=== PATIENT | male | born 1970 | race Two or more races ===

== ENCOUNTER 2017-04-03 19:45 | Observation (INO) | payer MEDICAID ==
[~2017-04-03] VITALS: Ht 165.1 cm; Wt 72.6 kg
[2017-04-03 20:35] LABS: Basophils # (auto) 0 uL; Basophils % (auto) 0.3 % (0.0-2.0); Eosinophils # (auto) 0.1 uL; Eosinophils % (auto) 1.5 % (0.0-7.0); Hematocrit 42.7 % (41.0-53.0); Hemoglobin 14.8 g/dL (13.5-17.5); Lymphocytes # (auto) 1.4 uL; Lymphocytes % (auto) 29.1 % (10.0-50.0); Mean Corpuscular Hgb Conc. 34.8 g/dL (32.0-36.0); Mean Corpuscular Volume 92.2 fL (80.0-100.0); Monocytes # (auto) 0.4 uL; Monocytes % (auto) 9.1 % (0.0-12.0); Neutrophils # (auto) 2.8 uL; Nucleated Red Blood Cells % 0.1 %; Platelet Count (auto) 184 10^3/uL (140-450); Red Blood Cells 4.63 10^6/uL (4.5-5.90); Red Cell Distribution Width 13.3 % (11.8-14.3); White Blood Cell 4.7 10^3/uL (4.4-10.8)
[2017-04-03 20:40] LABS: INR 0.9 (0.9-1.15); Partial Thromboplastin Time 28.1 sec (22.64-33.71); Prothrombin Time 9.8 sec (9.37-12.3)
[2017-04-03 20:52] LABS: Alanine Aminotransferase 39 U/L (16-61); Albumin 3.9 g/dL (3.4-5.0); Alkaline Phosphatase 126 U/L (45-117); Anion Gap 7 (5-15); Aspartate Aminotransferase 18 U/L (15-37); BUN/Creatinine Ratio 17.3; Bilirubin, Total 0.3 mg/dL (0.2-1.0); Blood Urea Nitrogen 14 mg/dL (7-18); Calcium 8.7 mg/dL (8.5-10.1); Carbon Dioxide 28 mmol/L (21-32); Chloride 99 mmol/L (98-107); GFR African American 132 mL/min; GFR Non-African American 109 mL/min; Glucose 324 mg/dL (74-106); Potassium 4.1 mmol/L (3.5-5.1); Sodium 134 mmol/L (136-145)
[2017-04-04] MEDS ORDERED: InsuLIN REG 1unit/0.01ml Soln (100units/ml) IV ONE (00:15)
[2017-04-04 02:05] VITALS: BP 150/90
== END 2017-04-04 02:12 | disposition home or self-care (01) | DRG 203 ==
LOC: ER 19:50 → OVERFLOW 20:45 → ER 04-04 02:12
PROVIDERS: ADMIT Emergency Medicine; ATTEND Emergency Medicine
DX: R07.2 Precordial pain (principal); E10.65 Type 1 diabetes mellitus with hyperglycemia; K29.70 Gastritis, unspecified, without bleeding; F17.200 Nicotine dependence, unspecified, uncomplicated
CPT/HCPCS: 36415; 71010; 80053; 82962; 83036; 83735; 83880; 84443; 84484; 85025; 85379; 85610; 85730; 93005; 96374; 99285; G0378; J1815

== ENCOUNTER 2019-10-11 15:51 | Inpatient (IN) | payer MEDICAID ==
[~2019-10-11] VITALS: Ht 165.1 cm; Wt 65.3 kg
[2019-10-11] MEDS ORDERED: SODIUM CHLORIDE 0.9% 1,000 ML IVB ONE (16:45)
[2019-10-11] MEDS ORDERED: CLINDAMYCIN 600MG IV 50 ML IV ONE (16:45)
[2019-10-11 17:08] LABS: Basophils # (auto) 0 10 ^3/uL (0-0.2); Basophils % (auto) 0.5 % (0.0-2.0); Eosinophils # (auto) 0 10 ^3/uL (0-0.8); Eosinophils % (auto) 0.4 % (0.0-7.0); Hematocrit 40.9 % (41.0-53.0); Hemoglobin 13.6 g/dL (13.5-17.5); Lymphocytes % (auto) 10.4 % (10.0-50.0); Mean Corpuscular Hemoglobin 29.8 pg (28.0-32.0); Mean Corpuscular Hgb Conc. 33.4 g/dL (32.0-36.0); Mean Corpuscular Volume 89.4 fL (80.0-100.0); Monocytes # (auto) 0.8 10 ^3/uL (0-1.3); Monocytes % (auto) 7.6 % (0.0-12.0); Neutrophils % (auto) 81.1 % (37.0-80.0); Nucleated Red Blood Cells % 0.1 %; Platelet Count (auto) 310 10^3/uL (140-450); Red Blood Cells 4.58 10^6/uL (4.5-5.90); Red Cell Distribution Width 13.1 % (11.8-14.3); White Blood Cell 9.9 10^3/uL (4.4-10.8)
[2019-10-11 17:22] LABS: Albumin 2.1 g/dL (3.4-5.0); Calcium 8.3 mg/dL (8.5-10.1); Potassium 4.5 mmol/L (3.5-5.1)
[2019-10-11 17:24] LABS: BUN/Creatinine Ratio 18.8; Bilirubin, Total 0.4 mg/dL (0.2-1.0); Total Protein 7.2 g/dL (6.4-8.2)
[2019-10-11 17:41] LABS: INR 0.96 (0.9-1.15)
[2019-10-11] MEDS ORDERED: ACETAMINOPHEN 500 MG TAB PO ONE (19:00)
[2019-10-11] MEDS ORDERED: SODIUM CHLORIDE 0.9% 1,000 ML IV SCH (19:24)
[2019-10-11] MEDS ORDERED: VANCOMYCIN PER PHARMACY 0 MG IV SCH (19:30)
[2019-10-11] MEDS ORDERED: HYDROcodone-ACET 5/325MG TAB PO PRN (19:30)
[2019-10-11] MEDS ORDERED: DOCUSATE SOD 100 MG CAP PO PRN (19:30)
[2019-10-11] MEDS ORDERED: NITROGLYCERIN 0.4 MG SL TAB SL PRN (19:30)
[2019-10-11] MEDS ORDERED: LORazepam 0.5 MG TAB PO PRN (19:30)
[2019-10-11] MEDS ORDERED: METOCLOPRAMIDE HCL 5MG/ml INJ 2ml VIAL IV PRN (19:30)
[2019-10-11] MEDS ORDERED: FUROSEMIDE 20 MG/2 ML VIAL IV ONE (19:30)
[2019-10-11] MEDS ORDERED: MORPHINE SULF INJ 2 MG/ML SYRINGE 1ML IV PRN ×2 (19:30)
[2019-10-11] MEDS ORDERED: ACETAMINOPHEN 500 MG TAB PO PRN (19:30)
[2019-10-11] MEDS ORDERED: ALUM & MAG HYDROX-SIMETH LIQ(MAALOX) 30 ML PO PRN (19:30)
[2019-10-11] MEDS ORDERED: hydrALAZINE HCL 20 MG/ML VL IV ONE (19:45)
[2019-10-11] MEDS ORDERED: DEXTROSE (50%) 50ML SYRG IV PRN (19:45)
[2019-10-11 21:30] VITALS: BP 171/91
--- NOTE | 2019-10-11 21:30 | NUR ---
Telemetry admit from ER ALISON DENNIS admitted to Telemetry unit after SBAR received. Patient oriented to GITA PALOMINO RN primary RN, unit, room, bed, and unit policies regarding patient care and visiting hours. Patient now on continuous telemetry monitoring, tele box #6 and telemetry reading on arrival to unit is NSR. Upon arrival, patient A&O x4, no s/s of distress or SOB noted at this time. Patient denies pain at this time. Patient weighed by bedscale and encouraged to call if they need something. Bed locked and left in the lowest position and call light left within reach. All questions and concerns addressed, patient verbalized understanding.
[2019-10-11] MEDS ORDERED: ALBUTEROL SULF HFA 90MCG INH 200DOSE IN SCH (22:00)
[2019-10-11] MEDS: VANCOMYCIN 1GM/250ML 250 ML IV SCH (22:27)
[2019-10-11] MEDS: ACCU-CHEK COMFORT CURVE STRIP VI SCH (22:28)
[2019-10-11] MEDS: INSULIN LANTUS (GLARGINE) 1 /0.01ml (100units/ml) SC SCH (22:28)
[2019-10-11] MEDS: InsuLIN REG 1unit/0.01ml Soln (100units/ml) SC SCH (22:29)
--- NOTE | 2019-10-11 22:45 | NUR ---
ELEVATED BLOOD PRESSURE PATIENT'S BP NOTED IN THE 170s/90s, HOSPITALIST PAGED AND NEW ORDER GIVEN, VERIFIED, AND READ BACK. WILL CONTINUE TO MONITOR.
[2019-10-11 23:46] VITALS: BP 134/82
--- NOTE | 2019-10-11 23:46 | NUR ---
BP REASSESSMENT CURRENT BP: 134/82 THE PATIENT HAS NO COMPLAINTS OF PAIN, NO S/S OF SOB OR DISTRESS NOTED, PATIENT STATES HE "FEELS FINE" ALL OTHER VITALS ARE STABLE AT THIS TIME.
[2019-10-12] MEDS: PIPERACILLIN-TAZOB 3.375GM 100 ML IV SCH ×4 (00:30→17:48)
[2019-10-12] MEDS: hydrALAZINE HCL 25 MG TAB PO PRN (01:13)
[2019-10-12 02:00] VITALS: BP 168/88
--- NOTE | 2019-10-12 04:50 | NUR ---
ELEVATED BP BLOOD PRESSURE READING IN 160s/90s. PATIENT REMAINS ASYMPTOMATIC. HOSPITALIST PAGED, NEW ORDER GIVEN, READ BACK, AND VERIFIED. WILL REASSESS AND CONTINUE TO MONITOR
[2019-10-12] MEDS ORDERED: cloNIDine HCL 0.1 MG TAB PO ONE (05:00)
--- NOTE | 2019-10-12 05:52 | NUR ---
MORNING LABS COLLECTED AND SENT TO THE LAB.
--- NOTE | 2019-10-12 05:53 | NUR ---
PICTURE OF WOUND TO LEFT FOOT TAKEN.
[2019-10-12] MEDS ORDERED: FUROSEMIDE 20 MG/2 ML VIAL IV SCH (06:00)
[2019-10-12 06:03] LABS: Basophils # (auto) 0 10 ^3/uL (0-0.2); Basophils % (auto) 0.1 % (0.0-2.0); Eosinophils # (auto) 0 10 ^3/uL (0-0.8); Eosinophils % (auto) 0.3 % (0.0-7.0); Hematocrit 37.8 % (41.0-53.0); Hemoglobin 12.6 g/dL (13.5-17.5); Lymphocytes # (auto) 1.1 10 ^3/uL (0.4-5.4); Mean Corpuscular Hemoglobin 29.9 pg (28.0-32.0); Mean Corpuscular Hgb Conc. 33.4 g/dL (32.0-36.0); Mean Corpuscular Volume 89.7 fL (80.0-100.0); Monocytes # (auto) 0.9 10 ^3/uL (0-1.3); Monocytes % (auto) 9.1 % (0.0-12.0); Neutrophils # (auto) 7.9 10 ^3/uL (1.6-8.6); Neutrophils % (auto) 79.5 % (37.0-80.0); Platelet Count (auto) 279 10^3/uL (140-450); Red Blood Cells 4.22 10^6/uL (4.5-5.90); Red Cell Distribution Width 13.2 % (11.8-14.3); White Blood Cell 9.9 10^3/uL (4.4-10.8)
[2019-10-12 06:16] LABS: Albumin 1.8 g/dL (3.4-5.0); Anion Gap 7 (5-15); Calcium 7.9 mg/dL (8.5-10.1); Carbon Dioxide 24 mmol/L (21-32); Chloride 100 mmol/L (98-107); INR 1.13 (0.9-1.15); Magnesium 1.9 mg/dL (1.6-2.6); Partial Thromboplastin Time 31.7 sec (23.64-32.05); Potassium 4.1 mmol/L (3.5-5.1); Sodium 131 mmol/L (136-145)
[2019-10-12 06:24] LABS: Alanine Aminotransferase 14 U/L (16-61); Alkaline Phosphatase 81 U/L (45-117); Aspartate Aminotransferase 11 U/L (15-37); BUN/Creatinine Ratio 21.5; Bilirubin, Total 0.4 mg/dL (0.2-1.0); Blood Urea Nitrogen 14 mg/dL (7-18); Cholesterol 153 mg/dL (< 200); Creatine Kinase IFCC 83 U/L (39-308); GFR African American 169 mL/min; GFR Non-African American 139 mL/min; Glucose 166 mg/dL (74-106); HDL Cholesterol 32 mg/dL (40-59); LDL Cholesterol 102 mg/dL (< 100); Lactate Dehydrogenase 155 U/L (87-241); Phosphorus 3.5 mg/dL (2.5-4.90); Total Protein 6.1 g/dL (6.4-8.2); Triglycerides 141 mg/dL (< 150); Uric Acid 2.8 mg/dL (3.5-7.2)
[2019-10-12] MEDS: ACCU-CHEK COMFORT CURVE STRIP VI SCH ×4 (06:49→21:47)
[2019-10-12] MEDS: InsuLIN REG 1unit/0.01ml Soln (100units/ml) SC SCH ×4 (06:56→21:46)
[2019-10-12 07:02] LABS: CRP High Sensitivity 17 mg/dL (< 0.3)
--- NOTE | 2019-10-12 07:45 | NUR ---
OPENING SHIFT NOTE: PATIENT RESTING IN BED. A&OX4. RESPIRATIONS EVEN AND UNLABORED. NO S/S OF DISTRESS NOTED AT THIS TIME. DENIES ANY PAIN AT THIS TIME. PATIENT COMPLAINS OF COUGH STATES HE HAS HAD THE COUGH FOR 20 YEARS. UPDATED ON POC. BED IN LOWEST LOCKED POSITION WITH CALL LIGHT WITHIN REACH.
[2019-10-12] MEDS: INSULIN LISPRO (HUMAN) 100 UNITS/ML ML SC SCH ×2 (08:36→11:36)
[2019-10-12 09:00] VITALS: BP 139/74
[2019-10-12] MEDS: VANCOMYCIN 1GM/250ML 250 ML IV SCH ×2 (09:26→21:11)
--- NOTE | 2019-10-12 09:45 | NUR ---
REGARDING LEFT FOOT: DRESSING APPLIED TO PATIENT LEFT FOOT. LEFT GREAT TOE SLIGHTLY REDDENED. PUNCTURE WOUND TO BOTTOM HAS MINIMAL PURULENT DRAINAGE. PATIENT TOLERATED WELL.
[2019-10-12] MEDS: ZINC SULFATE 220mg CAP or TAB PO SCH (09:50)
[2019-10-12] MEDS: ASCORBIC ACID 1,000 MG TAB PO SCH (09:51)
[2019-10-12] MEDS ORDERED: CHOLECALCIFEROL (VITD3) 1,000UNIT=25mCg TAB PO SCH (10:00)
[2019-10-12] MEDS ORDERED: ENOXAPARIN SOD 40 MG/0.4 ML SYRINGE SC SCH (10:00)
--- NOTE | 2019-10-12 12:11 | NUR ---
ROBINA MESSER OF HOLDING SCHEDULED INSULIN LISPRO DUE TO NORMAL GLUCOSE. NO NEW ORDERS RECEIVED.
[2019-10-12] MEDS ORDERED: LORazepam 2MG/ML-1ML VIAL IV ONE (12:15)
[2019-10-12] MEDS ORDERED: LISINOPRIL 10 MG TAB PO ONE (12:15)
[2019-10-12] MEDS ORDERED: ACETAMINOPHEN 500 MG TAB PO PRN (12:15)
[2019-10-12 13:19] LABS: Urine Bacteria NONE SEEN /hpf (None Seen); Urine Blood TRACE /uL (Negative); Urine Specific Gravity 1.025 (1.001-1.035); Urine WBC 2 /hpf (0 - 3)
--- NOTE | 2019-10-12 14:48 | NUR ---
Nutrition Assessment Notes Please refer to link for full assessment notes. Est Energy needs: [id number] kcals (23-25 kcal/kgBW) Est Protein needs: 50-63 gms/day (0.8-1.0 gm/kgBW) Will continue to monitor and reassess prn. Addendum: 10/12/19 at [address] Amended: Links added.
[2019-10-12] MEDS: SODIUM CHLORIDE 0.9% 1,000 ML IV SCH (14:54)
--- NOTE | 2019-10-12 15:05 | NUR ---
TRANSFERRED TO ROOM 246A. REPORT GIVEN TO ANT JOHNSON.
[2019-10-12 16:59] VITALS: BP 164/96
--- NOTE | 2019-10-12 17:30 | NUR ---
patient has a temperature of 101.7. will give patient acetaminophen and remove blankets from patient.
[2019-10-12] MEDS: ACETAMINOPHEN 325 MG TAB PO PRN (17:49)
--- NOTE | 2019-10-12 18:48 | NUR ---
WOUND CARE NOTE: Wound care in to see patient per wound care request regarding L foot wound. Bedside nurse took photograph of patient's wound upon admission for reference. Patient is 49 years old male with admitting diagnosis of Sepsis, poss secondary to Atypical Pneumonia, R/O CoVid19. Patient with history of DM. Patient is resting in bed in Rm. 246A. Patient is awake, alert and oriented. He's in no stated pain at this time. Patient reported that he' s ambulatory . He's self turning and repositioning and his Cedric score is 22. Noted patient's L plantar foot has 1x1x0.3cm open full thickness DFU. Wound bed is dusky red, suzy wound is yellow hyperkeratotic ring, minimal serosanguineous drainage noted, no odor noted. Bedside nurse cleansed patient's wound and applied dressing per MD order. Patient reported that he has had the left foot wound for "three months" He said he's nota manzanares how it started, he just went to shower and he noted his left foot with "small cut". He added taht he beatrice oviedo seen a foot doctor for it. Patient tolerated well and denies any other wound. RECOMMENDATION: Nursing to continue with Daily/PRN cleaning of L foot wound with Betadine per MD order , podiatry consult, elevate affected extremity on pillows,continue monitoring by wound care while patient is hospitalized. Addendum: 10/12/19 at 1900 by Ann-Marie Gonzalez RN Amended: Links added.
--- NOTE | 2019-10-12 19:04 | NUR ---
temperature recheck came back at 101.6. patient reports not having chills or feeling cold. patient is not under covers. will endorse to nightshift to continue to monitor his temperature.
--- NOTE | 2019-10-12 19:20 | NUR ---
Opening Shift Note Received report from elissa Dyer RN. Assumed care of patient, awake and alert. No S/S of distress/SOB or pain. Instructed on POC and to call for assist PRN, will continue to monitor for changes Q1hr and PRN. Bed placed in lowest position and call light within reach.
[2019-10-12] MEDS: INSULIN LANTUS (GLARGINE) 1 /0.01ml (100units/ml) SC SCH (21:47)
[2019-10-12 22:00] VITALS: BP 134/74
[2019-10-13] VITALS (7 sets, daily range): BP systolic 132–180; BP diastolic 73–94
[2019-10-13] MEDS: PIPERACILLIN-TAZOB 3.375GM 100 ML IV SCH ×3 (00:15→12:16)
[2019-10-13] MEDS: SODIUM CHLORIDE 0.9% 1,000 ML IV SCH ×3 (00:16→18:10)
[2019-10-13] MEDS: ACETAMINOPHEN 325 MG TAB PO PRN ×2 (05:17→16:47)
--- NOTE | 2019-10-13 05:17 | NUR ---
GIVEN TYLENOL FOR TEMP OF F102.1. WILL MONITOR.
[2019-10-13] MEDS: hydrALAZINE HCL 25 MG TAB PO PRN ×2 (05:32→16:33)
[2019-10-13 05:59] LABS: Calcium 8.1 mg/dL (8.5-10.1)
[2019-10-13 06:07] LABS: BUN/Creatinine Ratio 18.8
[2019-10-13] MEDS: InsuLIN REG 1unit/0.01ml Soln (100units/ml) SC SCH ×4 (06:21→22:21)
[2019-10-13] MEDS: ACCU-CHEK COMFORT CURVE STRIP VI SCH ×4 (06:21→22:21)
--- NOTE | 2019-10-13 06:30 | NUR ---
TEMPERATURE RECHECK IS 100.6. PATIENT IS RESTING IN BED WITH EYES CLOSED. NO DISTRESS NOTED.
--- NOTE | 2019-10-13 07:15 | NUR ---
DRESSING CHANGED TO LEFT FOOT ORDERED. CLEANSED WITH NS. PAT DRY. APPLIED BETADINE TO WOUND. WRAPPED FOOT WITH ROLLER GAUZE AND TAPED THE END. SMALL AMOUNT OF YELLOW DRAINAGE NOTED FROM THE CENTER OF THE WOUND, NO ODOR NOTED. PATIENT TOLERATED WELL.
--- NOTE | 2019-10-13 07:30 | NUR ---
Opening Shift Note Assumed care of patient, awake and alert. No S/S of distress/SOB or pain. Instructed on POC and to call for assist PRN, will continue to monitor for changes Q1hr and PRN.
[2019-10-13] MEDS: ZINC SULFATE 220mg CAP or TAB PO SCH (09:54)
[2019-10-13] MEDS: ASCORBIC ACID 1,000 MG TAB PO SCH (09:54)
[2019-10-13] MEDS: VANCOMYCIN 1GM/250ML 250 ML IV SCH (09:54)
[2019-10-13] MEDS: LISINOPRIL 10 MG TAB PO SCH (09:55)
[2019-10-13] MEDS: cefTRIAXone 1GM/50ML D5W 50 ML IV SCH (16:32)
[2019-10-13] MEDS ORDERED: guaiFENesin-DM 100/10mg/5ml SYR PO PRN (16:45)
[2019-10-13] MEDS: INSULIN LANTUS (GLARGINE) 1 /0.01ml (100units/ml) SC SCH (22:21)
[2019-10-14] MEDS: SODIUM CHLORIDE 0.9% 1,000 ML IV SCH (04:41)
[2019-10-14 05:00] VITALS: BP 162/91
[2019-10-14] MEDS: ACETAMINOPHEN 325 MG TAB PO PRN (06:43)
[2019-10-14] MEDS: ACCU-CHEK COMFORT CURVE STRIP VI SCH (06:43)
[2019-10-14] MEDS: hydrALAZINE HCL 25 MG TAB PO PRN (06:43)
[2019-10-14] MEDS: InsuLIN REG 1unit/0.01ml Soln (100units/ml) SC SCH (06:44)
--- NOTE | 2019-10-14 07:35 | NUR ---
Opening Shift Note Assumed care of patient, awake and alert. No S/S of distress/SOB or pain. Dressing to left foot in place. Instructed on POC and to call for assist PRN, will continue to monitor for changes Q1hr and PRN.
[2019-10-14 08:00] VITALS: BP 144/82
[2019-10-14 08:41] VITALS: BP 144/82
[2019-10-14] MEDS ORDERED: DAKINS QUARTER STR 0.125% (NaHypochlorite) 473 ML TOPICAL SOL TOP SCH (10:00)
--- NOTE | 2019-10-14 10:00 | NUR ---
IVORY VERAS AT BEDSIDE, EXPLAINED WHAT NEEDED TO BE DONE TO FIX FOOT WOUND. ALL QUESTIONS ANSWERED, PATIENT STATES THAT HE WOULD LIKE A SECOND OPTION AND WILL GO TO [place].
[2019-10-14] MEDS: LISINOPRIL 10 MG TAB PO SCH (10:47)
[2019-10-14] MEDS: cefTRIAXone 1GM/50ML D5W 50 ML IV SCH (10:47)
[2019-10-14] MEDS: ZINC SULFATE 220mg CAP or TAB PO SCH (10:47)
[2019-10-14] MEDS: ASCORBIC ACID 1,000 MG TAB PO SCH (10:48)
[2019-10-14] MEDS ORDERED: METOCLOPRAMIDE HCL 5MG/ml INJ 2ml VIAL IV PRN (11:30)
--- NOTE | 2019-10-14 11:30 | NUR ---
DR Acuña at bedside, educating patient on surgery, offered a second option, patient states he understates but would still like to leave AMA. Paperwork completed, surgery shoe placed on foot.
--- NOTE | 2019-10-14 11:55 | NUR ---
AMA Note ALISON DENNIS states they want to leave the hospital Against Medical Advice (AMA). Patient encouraged to stay for further treatment/stabilization Dr Acuña notified of patient's wishes. Patient advised of the risks and benefits of leaving AMA. Patient verbalized understanding. Patient encouraged to return to the ER if symptoms do not improve or worsen.
== END 2019-10-14 11:45 | disposition left against medical advice (07) | DRG 720 ==
LOC: ER 15:51 → TELE 15:52 → TELE-EAST 21:05
PROVIDERS: ADMIT Hospitalist; ATTEND Internal Medicine
DX: A41.9 Sepsis, unspecified organism (principal); E43 Unspecified severe protein-calorie malnutrition; J18.9 Pneumonia, unspecified organism; E11.69 Type 2 diabetes mellitus with other specified complication; E11.51 Type 2 diabetes mellitus with diabetic peripheral angiopathy without gangrene; E87.8 Other disorders of electrolyte and fluid balance, not elsewhere classified; L97.529 Non-pressure chronic ulcer of other part of left foot with unspecified severity; S91.312A Laceration without foreign body, left foot, initial encounter; L03.116 Cellulitis of left lower limb; E11.65 Type 2 diabetes mellitus with hyperglycemia; R00.0 Tachycardia, unspecified; E22.2 Syndrome of inappropriate secretion of antidiuretic hormone; M86.8X7 Other osteomyelitis, ankle and foot; B96.1 Klebsiella pneumoniae [K. pneumoniae] as the cause of diseases classified elsewhere; Z03.818 Encounter for observation for suspected exposure to other biological agents ruled out; Z83.3 Family history of diabetes mellitus; Z82.49 Family history of ischemic heart disease and other diseases of the circulatory system; Z91.19 Patient's noncompliance with other medical treatment and regimen; Z53.29 Procedure and treatment not carried out because of patient's decision for other reasons; Z68.23 Body mass index [BMI] 23.0-23.9, adult
CPT/HCPCS: 36415; 71045; 73620; 73718; 80048; 80053; 80061; 80202; 81001; 82550; 82728; 82962; 83036; 83605; 83615; 83735; 83880; 84100; 84484; 84550; 85025; 85610; 85652; 85730; 86141; 87040; 87077; 87186; 87205; 93005; 93926; 96361; 96365; 96366; 96375; G0378; J0696; J1815; J2543; J3490

== ENCOUNTER 2020-12-26 11:18 | Inpatient (IN) | payer MEDICAID ==
[~2020-12-26] VITALS: Ht 165.1 cm; Wt 68.4 kg
[2020-12-26] MEDS ORDERED: FUROSEMIDE 40 MG/4 ML VIAL IV ONE (11:30)
[2020-12-26 11:48] LABS: Eosinophils # (auto) 0 10 ^3/uL (0-0.8); Lymphocytes # (auto) 0.5 10 ^3/uL (0.4-5.4)
[2020-12-26 11:50] LABS: Basophils # (auto) 0.1 10 ^3/uL (0-0.2); Basophils % (auto) 0.4 % (0.0-2.0); Eosinophils % (auto) 0.1 % (0.0-7.0); Hematocrit 20.9 % (41.0-53.0); Lymphocytes % (auto) 4.1 % (10.0-50.0); Mean Corpuscular Hemoglobin 29.4 pg (28.0-32.0); Mean Corpuscular Hgb Conc. 33.6 g/dL (32.0-36.0); Mean Corpuscular Volume 87.3 fL (80.0-100.0); Monocytes # (auto) 0.6 10 ^3/uL (0-1.3); Monocytes % (auto) 4.4 % (0.0-12.0); Neutrophils # (auto) 11.5 10 ^3/uL (1.6-8.6); Red Cell Distribution Width 14.4 % (11.8-14.3); White Blood Cell 12.6 10^3/uL (4.4-10.8)
[2020-12-26 12:10] LABS: Albumin 2.6 g/dL (3.4-5.0); Anion Gap 9 (5-15); Blood Urea Nitrogen 74 mg/dL (7-18); Calcium 7.9 mg/dL (8.5-10.1); Carbon Dioxide 20 mmol/L (21-32); Chloride 106 mmol/L (98-107); Glucose 175 mg/dL (74-106); Potassium 5.3 mmol/L (3.5-5.1); Sodium 135 mmol/L (136-145)
[2020-12-26 12:16] LABS: Alanine Aminotransferase 26 U/L (16-61); Alkaline Phosphatase 75 U/L (45-117); Aspartate Aminotransferase 13 U/L (15-37); BUN/Creatinine Ratio 25.1; Bilirubin, Total 0.4 mg/dL (0.2-1.0); GFR African American 29 mL/min; GFR Non-African American 24 mL/min; Total Protein 6.9 g/dL (6.4-8.2)
[2020-12-26] MEDS ORDERED: SODIUM ZIRCONIUM CYCL 10 GM PAK PO ONE (12:45)
[2020-12-26] MEDS ORDERED: InsuLIN REG 1unit/0.01ml Soln (100units/ml) IV ONE (12:45)
[2020-12-26] MEDS ORDERED: ALBUTEROL SULF 2.5 MG/0.5ML(0.5%) NEB SOLN NEB ONE (12:45)
[2020-12-26] MEDS ORDERED: SODIUM BICARBONATE 8.4% INJ 50ML SYRINGE IV ONE (12:45)
[2020-12-26] MEDS ORDERED: CALCIUM GLUC 1,000mg/50ml-NS 50 ML IV ONE (12:45)
[2020-12-26] MEDS ORDERED: DEXTROSE (50%) 50ML SYRG IV ONE (12:45)
[2020-12-26] MEDS ORDERED: ONDANSETRON HCL 4 MG/2 ML VIAL IV PRN (14:45)
[2020-12-26] MEDS ORDERED: HYDROcodone-ACET 5/325MG TAB PO PRN (14:45)
[2020-12-26] MEDS ORDERED: MORPHINE SULF INJ 2 MG/ML SYRINGE 1ML IV PRN (14:45)
[2020-12-26] MEDS ORDERED: hydrALAZINE HCL 20 MG/ML VL IV PRN (14:45)
[2020-12-26 15:20] LABS: Urine Bacteria FEW /hpf (None Seen); Urine Blood Negative /uL (Negative); Urine Hyaline Cast FEW /lpf (0 - 2); Urine Mucus FEW (None Seen); Urine Specific Gravity 1.013 (1.001-1.035); Urine WBC 1 /hpf (0 - 3)
[2020-12-26] MEDS: ALBUTEROL SULF 2.5 MG/0.5ML(0.5%) NEB SOLN NEB SCH (18:35)
[2020-12-26] MEDS: IPRATROPIUM BROM 0.5 MG/2.5ML INH SOL NEB SCH (18:35)
[2020-12-26] MEDS: FUROSEMIDE 40 MG/4 ML VIAL IV SCH (19:02)
[2020-12-26 20:00] VITALS: BP 138/82
[2020-12-26 20:10] LABS: BUN/Creatinine Ratio 23.7; Calcium 7.7 mg/dL (8.5-10.1); Potassium 4.8 mmol/L (3.5-5.1)
[2020-12-26] MEDS: PROMETHAZINE W/CODEINE 5 ML ORAL SYRUP PO PRN (21:33)
[2020-12-26] MEDS: ACETAMINOPHEN 325 MG TAB PO PRN (21:55)
[2020-12-26 22:49] VITALS: BP 138/82
[2020-12-26 23:36] VITALS: BP 101/57
[2020-12-26 23:51] VITALS: BP 136/61
[2020-12-27] VITALS (7 sets, daily range): BP systolic 122–167; BP diastolic 60–84
[2020-12-27] MEDS: PROMETHAZINE W/CODEINE 5 ML ORAL SYRUP PO PRN ×2 (03:40→10:31)
[2020-12-27 04:59] LABS: Urine Bacteria FEW /hpf (None Seen); Urine Blood Negative /uL (Negative); Urine Hyaline Cast FEW /lpf (0 - 2); Urine Mucus FEW (None Seen); Urine Specific Gravity 1.011 (1.001-1.035); Urine WBC 2 /hpf (0 - 3)
[2020-12-27] MEDS: FUROSEMIDE 40 MG/4 ML VIAL IV SCH ×2 (05:07→18:09)
[2020-12-27 06:32] LABS: Basophils # (auto) 0 10 ^3/uL (0-0.2); Eosinophils # (auto) 0 10 ^3/uL (0-0.8); Hemoglobin 7.9 g/dL (13.5-17.5); Lymphocytes # (auto) 0.9 10 ^3/uL (0.4-5.4)
[2020-12-27 06:34] LABS: Basophils % (auto) 0.3 % (0.0-2.0); Hematocrit 22.1 % (41.0-53.0); Lymphocytes % (auto) 9.2 % (10.0-50.0); Mean Corpuscular Hemoglobin 31.5 pg (28.0-32.0); Mean Corpuscular Hgb Conc. 35.7 g/dL (32.0-36.0); Mean Corpuscular Volume 88.3 fL (80.0-100.0); Monocytes # (auto) 0.5 10 ^3/uL (0-1.3); Monocytes % (auto) 5.4 % (0.0-12.0); Neutrophils # (auto) 8.5 10 ^3/uL (1.6-8.6); Neutrophils % (auto) 85.1 % (37.0-80.0); Nucleated Red Blood Cells % 0.1 %; Red Cell Distribution Width 13.9 % (11.8-14.3)
[2020-12-27 06:53] LABS: Albumin 2.2 g/dL (3.4-5.0)
[2020-12-27 06:54] LABS: Potassium 5.1 mmol/L (3.5-5.1)
[2020-12-27 06:57] LABS: Bilirubin, Direct 0.2 mg/dL (0-0.2); Bilirubin, Total 0.6 mg/dL (0.2-1.0); Phosphorus 5.7 mg/dL (2.5-4.90); Total Protein 6.2 g/dL (6.4-8.2); Uric Acid 9.1 mg/dL (3.5-7.2)
[2020-12-27 07:00] LABS: BUN/Creatinine Ratio 25.8; Calcium 7.7 mg/dL (8.5-10.1)
[2020-12-27] MEDS: ALBUTEROL SULF 2.5 MG/0.5ML(0.5%) NEB SOLN NEB SCH ×3 (07:05→19:19)
[2020-12-27] MEDS: IPRATROPIUM BROM 0.5 MG/2.5ML INH SOL NEB SCH ×3 (07:05→19:19)
[2020-12-27] MEDS ORDERED: FURO40TA4 PO (10:04)
[2020-12-27] MEDS ORDERED: FERR-20 PO (10:07)
[2020-12-27] MEDS ORDERED: ISOS60TA24 PO (10:07)
[2020-12-27] MEDS ORDERED: METF-370 PO (10:07)
[2020-12-27] MEDS ORDERED: CARV25TA55 PO (10:07)
[2020-12-27] MEDS ORDERED: HYDR25TA87 PO (10:07)
[2020-12-27] MEDS ORDERED: AMLO-489 PO (10:08)
[2020-12-27] MEDS ORDERED: DEXTROSE (50%) 50ML SYRG IV PRN (11:00)
[2020-12-27] MEDS: ACCU-CHEK COMFORT CURVE STRIP VI SCH ×3 (11:30→22:08)
[2020-12-27] MEDS: InsuLIN REG 1unit/0.01ml Soln (100units/ml) SC SCH ×3 (13:07→22:00)
[2020-12-27] MEDS ORDERED: DOCUSATE SOD 100 MG CAP PO PRN (15:30)
[2020-12-27] MEDS ORDERED: POLYETHYLENE GLYCOL 17 GM PWDR PO PRN (15:30)
[2020-12-27] MEDS ORDERED: SODIUM FERR GLUC 62.5MG/5ML 125 MG in SODIUM CHL 0.9% 100 ML IV ONE (15:30)
[2020-12-27] MEDS: guaiFENesin-DM 100/10mg/5ml SYR PO PRN ×2 (16:39→22:09)
[2020-12-27] MEDS: FERROUS SULFATE 325mg EC TAB PO SCH (18:08)
[2020-12-27] MEDS: ACETAMINOPHEN 325 MG TAB PO PRN (18:14)
[2020-12-27] MEDS ORDERED: levoFLOXacin 500MG 100 ML IV ONE (18:30)
[2020-12-28 02:53] VITALS: BP 153/69
[2020-12-28] MEDS: guaiFENesin-DM 100/10mg/5ml SYR PO PRN ×2 (05:13→10:02)
[2020-12-28] MEDS: FUROSEMIDE 40 MG/4 ML VIAL IV SCH ×2 (05:18→18:33)
[2020-12-28 05:55] VITALS: BP 168/78
[2020-12-28 05:55] LABS: Basophils # (auto) 0 10 ^3/uL (0-0.2); Basophils % (auto) 0.4 % (0.0-2.0); Eosinophils # (auto) 0 10 ^3/uL (0-0.8); Hemoglobin 8.1 g/dL (13.5-17.5); Monocytes # (auto) 0.5 10 ^3/uL (0-1.3); Neutrophils # (auto) 6.9 10 ^3/uL (1.6-8.6); Red Blood Cells 2.61 10^6/uL (4.5-5.90)
[2020-12-28 05:57] LABS: Eosinophils % (auto) 0.3 % (0.0-7.0); Lymphocytes # (auto) 1.1 10 ^3/uL (0.4-5.4); Lymphocytes % (auto) 12.9 % (10.0-50.0); Mean Corpuscular Hgb Conc. 35.3 g/dL (32.0-36.0); Mean Corpuscular Volume 87.9 fL (80.0-100.0); Monocytes % (auto) 5.9 % (0.0-12.0); Neutrophils % (auto) 80.5 % (37.0-80.0); Red Cell Distribution Width 14.1 % (11.8-14.3); White Blood Cell 8.5 10^3/uL (4.4-10.8)
[2020-12-28] MEDS: InsuLIN REG 1unit/0.01ml Soln (100units/ml) SC SCH ×3 (06:23→17:00)
[2020-12-28] MEDS: ACCU-CHEK COMFORT CURVE STRIP VI SCH ×3 (06:24→17:15)
[2020-12-28 06:33] LABS: Potassium 4.6 mmol/L (3.5-5.1)
[2020-12-28] MEDS: IPRATROPIUM BROM 0.5 MG/2.5ML INH SOL NEB SCH ×3 (06:46→19:23)
[2020-12-28] MEDS: ALBUTEROL SULF 2.5 MG/0.5ML(0.5%) NEB SOLN NEB SCH ×3 (06:46→19:23)
[2020-12-28 06:53] LABS: BUN/Creatinine Ratio 26.3; Calcium 8.1 mg/dL (8.5-10.1)
[2020-12-28] MEDS: FERROUS SULFATE 325mg EC TAB PO SCH ×3 (08:12→18:33)
[2020-12-28 09:00] VITALS: BP 156/72
[2020-12-28] MEDS ORDERED: levoFLOXacin 250MG 50 ML IV SCH (10:00)
[2020-12-28] MEDS ORDERED: FURO40TA4 PO (10:54)
[2020-12-28] MEDS ORDERED: ALBUAER3 IN (10:54)
[2020-12-28] MEDS ORDERED: DEXT1SYP9 PO (10:54)
[2020-12-28] MEDS ORDERED: FER325T PO (10:54)
[2020-12-28] MEDS ORDERED: LEVO250T69 PO (10:55)
[2020-12-28 13:00] VITALS: BP 157/70
[2020-12-28 14:31] LABS: Folate (Folic Acid) 6.67 ng/mL (5.38-24)
[2020-12-28 17:00] VITALS: BP 150/73
[2020-12-28 19:29] VITALS: BP 150/73
== END 2020-12-28 21:15 | disposition home health service (06) | DRG 139 ==
LOC: EDBD 11:18 → ER 11:18 → TELE 14:52 → TELE-WESTW 20:03
PROVIDERS: ADMIT Internal Medicine; ATTEND Internal Medicine
PROC: 30230N1 Transfusion of Nonautologous Red Blood Cells into Peripheral Vein, Open Approach (ICD-10-PCS; principal; 2020-12-26)
DX: J18.9 Pneumonia, unspecified organism (principal); N17.0 Acute kidney failure with tubular necrosis; I50.43 Acute on chronic combined systolic (congestive) and diastolic (congestive) heart failure; I13.0 Hypertensive heart and chronic kidney disease with heart failure and stage 1 through stage 4 chronic kidney disease, or unspecified chronic kidney disease; E11.22 Type 2 diabetes mellitus with diabetic chronic kidney disease; N18.31 Chronic kidney disease, stage 3a; D50.9 Iron deficiency anemia, unspecified; Z20.822 Contact with and (suspected) exposure to COVID-19; E78.5 Hyperlipidemia, unspecified; Z82.49 Family history of ischemic heart disease and other diseases of the circulatory system; Z83.3 Family history of diabetes mellitus; Z91.14 Patient's other noncompliance with medication regimen; Z91.19 Patient's noncompliance with other medical treatment and regimen; Z79.899 Other long term (current) drug therapy; E44.1 Mild protein-calorie malnutrition
CPT/HCPCS: 36415; 71045; 76775; 80048; 80053; 80076; 81001; 82270; 82306; 82570; 82607; 82746; 82962; 83540; 83550; 83880; 84100; 84156; 84300; 84443; 84484; 84550; 85025; 86850; 86870; 86900; 86901; 86902; 86922; 87040; 87081; 87086; 87426; 93005; 93306; 94640; 94644; 96365; 96375; 99291; G0378; J1815; J1956

== ENCOUNTER → 2020-12-26 | Emergency (ER) | payer MEDICAID ==
[~2020-12-26] MED LIST: ALBUAER3 IN; AMLO-489 PO; CARV25TA55 PO; DEXT1SYP9 PO; FER325T PO; FERR-20 PO; FURO40TA4 PO; HYDR25TA87 PO; ISOS60TA24 PO; LEVO250T69 PO; METF-370 PO; SODI5PAK PO
== END | disposition left against medical advice (07) ==
LOC: ER 11:39
DX: R06.02 Shortness of breath (principal); Z53.21 Procedure and treatment not carried out due to patient leaving prior to being seen by health care provider
CPT/HCPCS: 82962

== ENCOUNTER 2021-01-05 16:23 | Inpatient (IN) | payer MEDICAID ==
[~2021-01-05] VITALS: Ht 165.1 cm; Wt 66.8 kg
[~2021-01-05 16:23] MED LIST changes: -SODI5PAK PO
[2021-01-05 18:44] LABS: Basophils # (auto) 0 10 ^3/uL (0-0.2); Eosinophils # (auto) 0 10 ^3/uL (0-0.8); Hemoglobin 8.4 g/dL (13.5-17.5); Lymphocytes # (auto) 0.8 10 ^3/uL (0.4-5.4); Monocytes # (auto) 0.4 10 ^3/uL (0-1.3); Neutrophils # (auto) 3.8 10 ^3/uL (1.6-8.6); White Blood Cell 5.1 10^3/uL (4.4-10.8)
[2021-01-05 18:46] LABS: Basophils % (auto) 0.5 % (0.0-2.0); Eosinophils % (auto) 0.5 % (0.0-7.0); Hematocrit 25.1 % (41.0-53.0); Mean Corpuscular Hemoglobin 30.3 pg (28.0-32.0); Mean Corpuscular Hgb Conc. 33.6 g/dL (32.0-36.0); Mean Corpuscular Volume 90.1 fL (80.0-100.0); Monocytes % (auto) 7.8 % (0.0-12.0); Neutrophils % (auto) 75.2 % (37.0-80.0); Red Blood Cells 2.78 10^6/uL (4.5-5.90); Red Cell Distribution Width 14.5 % (11.8-14.3)
[2021-01-05 19:00] LABS: Albumin 2.8 g/dL (3.4-5.0); BUN/Creatinine Ratio 22.4; Potassium 5.3 mmol/L (3.5-5.1)
[2021-01-05 19:02] LABS: Bilirubin, Total 0.2 mg/dL (0.2-1.0); Total Protein 7.1 g/dL (6.4-8.2)
[2021-01-05] MEDS ORDERED: NITROGLYCERIN 0.4 MG SL TAB SL PRN (22:45)
[2021-01-05] MEDS ORDERED: DEXTROSE (50%) 50ML SYRG IV PRN (22:45)
[2021-01-05] MEDS ORDERED: MORPHINE SULF INJ 2 MG/ML SYRINGE 1ML IV PRN (22:45)
[2021-01-06] MEDS ORDERED: hydrALAZINE HCL 20 MG/ML VL IV PRN (04:15)
[2021-01-06] MEDS ORDERED: FERROUS SULFATE 325mg EC TAB PO SCH ×2 (06:00→18:00)
[2021-01-06] MEDS: InsuLIN REG 1unit/0.01ml Soln (100units/ml) SC SCH ×4 (06:12→21:55)
[2021-01-06] MEDS: hydrALAZINE HCL 25 MG TAB PO SCH ×3 (06:12→21:53)
[2021-01-06] MEDS: ACCU-CHEK COMFORT CURVE STRIP VI SCH ×4 (06:13→21:54)
[2021-01-06 06:36] LABS: Basophils # (auto) 0 10 ^3/uL (0-0.2); Basophils % (auto) 0.5 % (0.0-2.0); Eosinophils # (auto) 0 10 ^3/uL (0-0.8); Lymphocytes # (auto) 0.8 10 ^3/uL (0.4-5.4); Monocytes # (auto) 0.4 10 ^3/uL (0-1.3)
[2021-01-06 06:39] LABS: Eosinophils % (auto) 0.5 % (0.0-7.0); Hematocrit 22.9 % (41.0-53.0); Lymphocytes % (auto) 14.8 % (10.0-50.0); Mean Corpuscular Hemoglobin 31.2 pg (28.0-32.0); Mean Corpuscular Hgb Conc. 34.8 g/dL (32.0-36.0); Mean Corpuscular Volume 89.4 fL (80.0-100.0); Monocytes % (auto) 7.1 % (0.0-12.0); Neutrophils # (auto) 4.1 10 ^3/uL (1.6-8.6); Neutrophils % (auto) 77.1 % (37.0-80.0); Red Blood Cells 2.57 10^6/uL (4.5-5.90); Red Cell Distribution Width 14.4 % (11.8-14.3); White Blood Cell 5.4 10^3/uL (4.4-10.8)
[2021-01-06 06:52] LABS: Anion Gap 3 (5-15); BUN/Creatinine Ratio 20.7; Blood Urea Nitrogen 47 mg/dL (7-18); Carbon Dioxide 26 mmol/L (21-32); Chloride 112 mmol/L (98-107); GFR African American 40 mL/min; GFR Non-African American 33 mL/min; Glucose 204 mg/dL (74-106); Potassium 4.9 mmol/L (3.5-5.1); Sodium 141 mmol/L (136-145)
[2021-01-06] MEDS ORDERED: HEPARIN SODIUM (PORCINE) 5000 UNITS/ML 1ML VIAL SC SCH (10:00)
[2021-01-06] MEDS ORDERED: metFORMIN HYDROCHLORIDE 500 MG TAB PO SCH (10:00)
[2021-01-06] MEDS: ISOSORBIDE MONONITRATE ER 60 MG TAB PO SCH (10:48)
[2021-01-06] MEDS: CARVEDILOL 12.5 MG TAB PO SCH ×2 (10:48→12:53)
[2021-01-06] MEDS: FUROSEMIDE 40 MG TAB PO SCH ×2 (10:49→21:53)
[2021-01-06] MEDS: amLODIPine BESYLATE 5 MG TAB PO SCH (10:50)
[2021-01-06] MEDS ORDERED: SODIUM CHLORIDE 0.9% 1,000 ML IV ONE (11:45)
[2021-01-06 13:21] LABS: Urine Bacteria NONE SEEN /hpf (None Seen); Urine Blood TRACE /uL (Negative); Urine Specific Gravity 1.012 (1.001-1.035); Urine WBC 1 /hpf (0 - 3)
[2021-01-06 13:47] LABS: Protein, Urine 371.1 mg/dL (0.0-11.9)
[2021-01-06 16:01] VITALS: BP 154/75
[2021-01-06 16:57] LABS: BUN/Creatinine Ratio 20.8; Calcium 7.6 mg/dL (8.5-10.1); Potassium 5.3 mmol/L (3.5-5.1)
[2021-01-06 17:00] VITALS: BP 143/74
[2021-01-06 19:09] LABS: Alcohol, Urine < 3.0 mg/dL (0-10); Amphetamine Screen, Urine NEGATIVE (NEGATIVE); Barbiturate Scree,Urine NEGATIVE (NEGATIVE); Benzodiazephine Screen, Urine NEGATIVE (NEGATIVE); Cannabinoid Screen, Urine NEGATIVE (NEGATIVE); Cocaine Screen, Urine NEGATIVE (NEGATIVE); Opiate Scree,Urine NEGATIVE (NEGATIVE); Phencyclidine Screen, Urine NEGATIVE (NEGATIVE)
[2021-01-06] MEDS ORDERED: EPOETIN ALFA-EPBX 10,000 UNIT/1ML VIAL SC ONE (21:00)
[2021-01-06 22:00] VITALS: BP 167/75
[2021-01-07 05:00] VITALS: BP 177/87
[2021-01-07] MEDS: hydrALAZINE HCL 25 MG TAB PO SCH ×2 (06:24→14:35)
[2021-01-07] MEDS: ACCU-CHEK COMFORT CURVE STRIP VI SCH ×3 (06:24→17:00)
[2021-01-07] MEDS: InsuLIN REG 1unit/0.01ml Soln (100units/ml) SC SCH ×3 (06:25→17:00)
[2021-01-07 06:51] LABS: Basophils # (auto) 0 10 ^3/uL (0-0.2); Basophils % (auto) 0.5 % (0.0-2.0); Eosinophils # (auto) 0 10 ^3/uL (0-0.8); Hemoglobin 7.8 g/dL (13.5-17.5); Lymphocytes # (auto) 0.9 10 ^3/uL (0.4-5.4); Monocytes # (auto) 0.4 10 ^3/uL (0-1.3)
[2021-01-07 06:53] LABS: Eosinophils % (auto) 0.7 % (0.0-7.0); Hematocrit 21.9 % (41.0-53.0); Lymphocytes % (auto) 20.5 % (10.0-50.0); Mean Corpuscular Hemoglobin 31.6 pg (28.0-32.0); Mean Corpuscular Hgb Conc. 35.5 g/dL (32.0-36.0); Mean Corpuscular Volume 89.1 fL (80.0-100.0); Monocytes % (auto) 7.7 % (0.0-12.0); Neutrophils # (auto) 3.3 10 ^3/uL (1.6-8.6); Neutrophils % (auto) 70.6 % (37.0-80.0); Nucleated Red Blood Cells % 0.2 %; Red Blood Cells 2.46 10^6/uL (4.5-5.90); Red Cell Distribution Width 14.5 % (11.8-14.3); White Blood Cell 4.6 10^3/uL (4.4-10.8)
[2021-01-07 07:09] LABS: BUN/Creatinine Ratio 22.6; Calcium 8.1 mg/dL (8.5-10.1)
[2021-01-07 09:00] VITALS: BP 171/66
[2021-01-07] MEDS: amLODIPine BESYLATE 5 MG TAB PO SCH (11:28)
[2021-01-07] MEDS: ISOSORBIDE MONONITRATE ER 60 MG TAB PO SCH (11:29)
[2021-01-07] MEDS: CARVEDILOL 12.5 MG TAB PO SCH (11:30)
[2021-01-07] MEDS: FUROSEMIDE 40 MG TAB PO SCH (11:30)
[2021-01-07] MEDS ORDERED: SODIUM FERR GLUC 62.5MG/5ML 125 MG in SODIUM CHL 0.9% 100 ML IV SCH (12:00)
[2021-01-07 13:00] VITALS: BP 162/79
[2021-01-07] MEDS ORDERED: SODI5PAK PO (13:23)
[2021-01-07 14:06] VITALS: BP_SYST 155; BP_SYST 162; BP_DIAS 76; BP_DIAS 79
== END 2021-01-07 17:57 | disposition home or self-care (01) | DRG 425 ==
LOC: ER 16:26 → TELE 23:28 → TELE-WESTW 01-06 14:37
PROVIDERS: ADMIT Hospitalist; ATTEND Hospitalist
DX: E87.5 Hyperkalemia (principal); E11.22 Type 2 diabetes mellitus with diabetic chronic kidney disease; E11.51 Type 2 diabetes mellitus with diabetic peripheral angiopathy without gangrene; N17.9 Acute kidney failure, unspecified; N18.30 Chronic kidney disease, stage 3 unspecified; I13.0 Hypertensive heart and chronic kidney disease with heart failure and stage 1 through stage 4 chronic kidney disease, or unspecified chronic kidney disease; I50.9 Heart failure, unspecified; D63.8 Anemia in other chronic diseases classified elsewhere; Z20.822 Contact with and (suspected) exposure to COVID-19; D63.1 Anemia in chronic kidney disease; Z82.49 Family history of ischemic heart disease and other diseases of the circulatory system; Z83.3 Family history of diabetes mellitus; Z89.512 Acquired absence of left leg below knee; Z89.511 Acquired absence of right leg below knee
CPT/HCPCS: 36415; 71045; 80048; 80053; 80307; 81001; 82570; 82728; 82962; 83036; 83540; 83550; 83880; 84156; 84484; 85025; 85045; 86850; 86870; 86900; 86901; 87081; 87426; 93005; 96360; 96372; G0378; J1815